=== PATIENT | female | born 1995 | race Caucasian/White ===

== ENCOUNTER 2017-03-03 14:26 | Emergency (ER) | payer OTHER ==
--- NOTE | 2017-03-03 15:26 | UC ---
General HPI - HPI Summary HPI Summary: Patient presents to the with requests for mono and lyme serologies d/t fatigue x 3 weeks. Denies cough, congestion, KEARNEY, ear pain or eye pain. Denies neuro symptoms including memory loss, confusion. She denies known tick bites or rashes. She has had both lyme and mono in the past, and states her symptoms feels similar to her previous symptoms. She had a strep test which was negative yesterday. Other than fatigue and diffuse intermittent back pain, she denies all other symptoms. Otherwise healthy. Denies fevers, sweats, chills or other signs of a systemic illness. - History of Current Complaint Chief Complaint: UCGeneralIllness Stated Complaint: TEST FOR LYME AND MONO Time Seen by Provider: 03/03/17 14:45 Hx Obtained From: Patient Hx Last Menstrual Period: 02/10/17 Onset/Duration: Sudden Onset Timing: Constant Onset Severity: Moderate Current Severity: Moderate Pain Intensity: 0 Associated Signs & Symptoms: Positive: Other - back pain/ fatigue - Allergy/Home Medications Allergies/Adverse Reactions: Allergies Allergy/AdvReac Type Severity Reaction Status Date / Time No Known Allergies Allergy Verified 03/03/17 14:37 Home Medications: Home Medications Sertraline* [Zoloft*] 50 mg PO DAILY 03/03/17 [History Confirmed 03/03/17] PMH/Surg Hx/FS Hx/Imm Hx Previously Healthy: Yes - Surgical History Surgical History: None - Family History Known Family History: Positive: Unknown - Social History Occupation: Employed Part-time Lives: With Family Alcohol Use: Occasionally Substance Use Type: None Smoking Status (MU): Never Smoked Tobacco - Immunization History Most Recent Influenza Vaccination: no Review of Systems Constitutional: Fatigue Skin: Negative Eyes: Negative ENT: Negative Respiratory: Negative Cardiovascular: Negative Gastrointestinal: Negative Motor: Negative Neurovascular: Negative Musculoskeletal: Arthralgia - diffuse back pain Neurological: Negative Is Patient Immunocompromised?: No All Other Systems Reviewed And Are Negative: Yes Physical Exam Triage Information Reviewed: Yes Appearance: Well-Appearing, Well-Nourished Vital Signs: Initial Vital Signs Temp 98.3 F 03/03/17 14:34 Pulse 50 03/03/17 14:34 Resp 16 03/03/17 14:34 BP 117/67 03/03/17 14:34 Pulse Ox 100 03/03/17 14:34 Vital Signs Reviewed: Yes Eye Exam: Normal Eyes: Positive: Conjunctiva Clear Neck exam: Normal Neck: Positive: Supple, No Lymphadenopathy Respiratory Exam: Normal Respiratory: Positive: Chest non-tender, Lungs clear Cardiovascular Exam: Normal Cardiovascular: Positive: RRR Musculoskeletal Exam: Normal Musculoskeletal: Positive: Strength Intact Neurological Exam: Normal Neurological: Positive: Alert Psychological: Positive: Normal Response To Family Skin Exam: Normal Course/Dx - Course Course Of Treatment: Patient given mono and lyme tests. Denies fevers, sweats, chills or other signs of a systemic illness. VS stable. Lungs CTA, no pharyngeal erythema and no LAD on physical exam. She states her only symptom is her fatigue. No rashes noted. She is requesting lyme and mono. Will call with results. - Differential Dx - Multi-Symptom Differential Diagnoses: Other - MONONUCLEOSIS, LYME DISEASE, FATIGUE, VIRAL ILLNESS Provider Diagnoses: FATIGUE Discharge - Discharge Plan Condition: Stable Disposition: HOME Patient Education Materials: Lyme Disease (ED), Mononucleosis (ED) Additional Instructions: I have given you information on [place] and Lyme. We are testing for each and will call with results. If you have any worsening symptoms - return to the .
[2017-03-03 18:57] LABS: EBV Response NO
[2017-03-03 19:07] LABS: Manual Entry Verification MER0007; Mono Internal Control QC Line Present
== END 2017-03-03 15:15 | disposition home or self-care (01) ==
LOC: UCCORT 14:26
DX: R53.83 Other fatigue (principal)
CPT/HCPCS: 36415; 86308; 86618; 99201; G0463